=== PATIENT | male | born 1950 | race African-American/Black ===

== ENCOUNTER 2022-12-06 19:06 | Emergency (ER) | payer OTHER ==
--- NOTE | 2022-12-06 20:00 | RAD REPORT ---
EXAM DESCRIPTION: CT - [id number] - 12/06/2022 7:52 pm CLINICAL HISTORY: Trauma, head and neck injury. CONFUSED COMPARISON: <Comparisons> TECHNIQUE: Axial 5 mm thick images of the head were obtained. Axial 2 mm thick images of the cervical spine were obtained with sagittal and coronal reconstruction images generated and reviewed. All CT scans are performed using dose optimization technique as appropriate and may include automated exposure control or mA/KV adjustment according to patient size. FINDINGS: CT HEAD WITHOUT CONTRAST: No acute hemorrhage, hydrocephalus or extra-axial collection is identified.Gliosis in both occipital lobes and right cerebellar hemisphere likely from prior CVA. The paranasal sinuses and mastoids are clear.The calvarium is intact. CT CERVICAL SPINE WITHOUT CONTRAST: No fracture or subluxation.Sclerosis and multilevel degenerative changes are present with large anter ior bridging osteophyte.No prevertebral soft tissues swelling is identified. IMPRESSION: No acute intracranial or cervical spine findings.
[2022-12-06 20:01] LABS: Specific Gravity 1.007 (1.005-1.030); Urine Bilirubin NEGATIVE (Negative); Urine Blood Negative (Negative); Urine Clarity Clear (Clear); Urine Color Colorless (Yellow); Urine Glucose NEGATIVE (Negative); Urine Protein NEGATIVE (Negative); Urine Urobilinogen Normal (Normal)
[2022-12-06 20:03] LABS: Absolute Lymphocytes (CBC) 1.3 K/uL (0.7-4.9); Hematocrit 37.8 % (39.6-49.0); MCV 100.1 fL (80-100); MPV 8.1 fL (7.6-11.3); RBC Red Blood Cell Count 3.77 M/uL (4.33-5.43)
[2022-12-06] MEDS ORDERED: ACETAMINOPHEN 500 MG TAB ONE (20:19)
[2022-12-06 20:22] LABS: Potassium 3.9 mEq/L (3.5-5.1); Troponin High Sensitivity 10.8 pg/mL (<58.9)
--- NOTE | 2022-12-06 20:24 | RAD REPORT ---
EXAM DESCRIPTION: RAD - Chest Single View - 12/06/2022 8:06 pm CLINICAL HISTORY: CHEST PAIN Chest pain. COMPARISON: <Comparisons> FINDINGS: Portable technique limits examination quality. The lungs are grossly clear. The heart is normal in size. No displaced fractures. IMPRESSION: No acute intrathoracic process suspected.
--- NOTE | 2022-12-06 20:40 | EDPHYS ---
Physician Documentation [facility] Name: Sergei Hill Age: 72 yrs Sex: Male : 1950 Arrival Date: 12/06/2022 Time: 19:06 Bed 5 Private MD: ED Physician Danny Winston HPI: 12/06 20:28 This 72 yrs old Black Male presents to ER via EMS with complaints of Fall Injury. bs3 20:28 72-year-old male history of CVA presents status post fall he notes that he still bs3 evidence her walking fell hitting his head he denies loss of consciousness he currently feels little bit nauseous and hungry he denies any prefall chest pain shortness of breath abdominal pain nausea vomiting or anything else bothering him. Historical: - Allergies: 19:13 No Known Allergies; kd3 - PMHx: 19:13 CVA; kd3 - Immunization history:: Adult Immunizations up to date. - Social history:: Smoking status: Patient/guardian denies using tobacco, but has a distant history of tobacco abuse. ROS: 20:28 Constitutional: Negative for fever, chills bs3 20:28 All other systems are negative. Exam: 20:28 Constitutional: This is a well developed, well nourished patient who is awake, alert, bs3 and in no acute distress. Head/Face: Normocephalic, atraumatic. Eyes: Pupils equal round and reactive to light, extra-ocular motions intact. Lids and lashes normal. ENT: mmm, no posterior phyarngeal erythema Neck: Trachea midline, no thyromegaly, no neck stiffness Chest/axilla: Normal chest wall appearance and motion. Nontender with no deformity. No lesions are appreciated. Cardiovascular: Regular rate and rhythm with a normal S1 and S2. symmetric pulses in upper extremities Respiratory: Lungs have equal breath sounds bilaterally, clear to auscultation, no respiratory distress Skin: Warm, dry with normal turgor. Normal color with no rashes, no lesions, and no evidence of cellulitis. MS/ Extremity: Pulses equal, no cyanosis. Neurovascular intact. Full, normal range of motion. Neuro: Awake and alert, GCS 15, oriented to person, place, time, and situation. Cranial nerves II-XII grossly intact. Motor strength 5/5 in all extremities. Sensory grossly intact. 20:28 Normal sinus rhythm at [address] elevation or depression QTc 434 is interpreted by myself Vital Signs: 19:09 BP 163 / 99; Pulse 59; Resp 19; Temp 98.7; Pulse Ox 99% on R/A; Weight 58.97 kg; Height kd3 5 ft. 8 in. ; 20:10 BP 142 / 80; Pulse 50; Resp 12; Pulse Ox 99% ; vc1 21:11 BP 141 / 88; Pulse 51; Resp 16; Pulse Ox 96% on R/A; ll3 19:09 Body Mass Index 19.77 (58.97 kg, 172.72 cm) kd3 MDM: 19:15 Patient medically screened. bs3 20:28 Differential diagnosis: abrasion, closed head injury, contusion. Data reviewed: vital bs3 signs, nurses notes. ED course: Likely dizziness in the setting of standing up quickly and ambulating will evaluate for etiology of syncope his ECG was not consistent with a cardiac etiology he has no focal deficits here we will reassess his labs are notable for elevated proBNP however his chest x-ray is normal he does not appear to be in acute heart failure his CT was nondiagnostic for any intracranial hemorrhage will discharge home to care home. 20:38 ED course: Patient ambulating with steady gait here requesting to go home his work-up bs3 was otherwise nondiagnostic diagnostic his proBNP was elevated but asymptomatic, xr neg for pulm edema, will dc home. 12/06 19:22 Order name: Basic Metabolic Panel; Complete Time: 20:28 bs3 12/06 19:22 Order name: CBC with Diff; Complete Time: 20:28 bs3 12/06 19:22 Order name: NT PRO-BNP; Complete Time: 20:28 bs3 12/06 19:22 Order name: Troponin HS; Complete Time: 20:28 bs3 12/06 19:39 Order name: Urinalysis w/ reflexes; Complete Time: 20:28 bs3 12/06 19:22 Order name: XRAY Chest (1 view); Complete Time: 20:28 bs3 12/06 19:22 Order name: CT Head C Spine; Complete Time: 20:28 bs3 12/06 19:22 Order name: EKG; Complete Time: 19:23 bs3 12/06 19:22 Order name: Cardiac monitoring; Complete Time: 19:34 bs3 12/06 19:22 Order name: EKG - Nurse/Tech; Complete Time: 19:34 bs3 12/06 19:22 Order name: IV Saline Lock; Complete Time: 19:46 bs3 12/06 19:22 Order name: Labs collected and sent; Complete Time: 19:46 bs3 12/06 19:22 Order name: O2 Per Protocol; Complete Time: 19:34 bs3 12/06 19:22 Order name: O2 Sat Monitoring; Complete Time: 19:34 bs3 Administered Medications: 20:14 Drug: Acetaminophen PO 1000 mg Route: PO; ll3 21:09 Follow up: Response: No adverse reaction; Marked relief of symptoms ll3 Disposition Summary: 12/06/22 20:39 Discharge Ordered Location: Home bs3 Problem: new bs3 Symptoms: have improved bs3 Condition: Stable bs3 Diagnosis - Unspecified injury of head, initial encounter bs3 Followup: bs3 - With: Private Physician - When: 48 Hours - Reason: Re-evaluation by your physician Discharge Instructions: - Discharge Summary Sheet bs3 - Head Injury, Adult bs3 - Dizziness, [id number] bs3 Forms: - Medication Reconciliation Form bs3 - Thank You Letter bs3 - Antibiotic Education bs3 - Prescription Opioid Use bs3 Signatures: Dispatcher [employer] Luciano Blackmon, RN RN ll3 Angie Tucker RN RN kd3 Danny Winston MD MD bs3 Corrections: (The following items were deleted from the chart) 19:34 19:23 Head Brain Wo Cont+CT.RAD.BRZ ordered. EDMS EDMS
--- NOTE | 2022-12-06 20:40 | ER ---
Nurse's Notes [facility] Name: Sergei Hill Age: 72 yrs Sex: Male : 1950 Arrival Date: 12/06/2022 Time: 19:06 Bed 5 Private MD: Diagnosis: Unspecified injury of head, initial encounter Presentation: 12/06 19:09 Chief complaint: EMS states: Pt stumbled over his feet around noon today and hit his kd3 head on a dresser over his right eye. Pt is complaining of a headache over the right eye. No other complaints of pain. 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 Coronavirus screen: Vaccine status: Patient reports receiving the 2nd dose of the covid vaccine. Ebola Screen: No symptoms or risks identified at this time. Initial Sepsis Screen: Does the patient meet any 2 criteria? No. Patient's initial sepsis screen is negative. Does the patient have a suspected source of infection? No. Patient's initial sepsis screen is negative. Risk Assessment: Do you want to hurt yourself or someone else? Patient reports no desire to harm self or others. Onset of symptoms was December 06, 2022. 19:09 Method Of Arrival: EMS: [facility] kd3 19:09 Acuity: YANICK 3 kd3 Triage Assessment: 19:13 General: Appears in no apparent distress. Behavior is calm, cooperative. Pain: kd3 Complains of pain in forehead. Neuro: Level of Consciousness is awake, alert, obeys commands, Oriented to person, place, time, situation. Cardiovascular: Patient's skin is warm and dry. Respiratory: Airway is patent Trachea midline Respiratory effort is even, unlabored, Respiratory pattern is regular, symmetrical. Historical: - Allergies: 19:13 No Known Allergies; kd3 - PMHx: 19:13 CVA; kd3 - Immunization history:: Adult Immunizations up to date. - Social history:: Smoking status: Patient/guardian denies using tobacco, but has a distant history of tobacco abuse. Screenin:08 [facility] ED Fall Risk Assessment (Adult) History of falling in the last 3 months, vc1 including since admission Yes- physiologic fall (2 pts) Confusion or Disorientation No (0 pts) Intoxicated or Sedated No (0 pts) Impaired Gait Yes (1 pt) Mobility Assist Device Used No (0 pt) Altered Elimination Yes (1 pt) Score/Fall Risk Level 0 - 2 = Low Risk Oriented to surroundings, Maintained a safe environment, Educated pt \T\ family on fall prevention, incl call for assistance when getting out of bed. Abuse screen: Denies threats or abuse. Nutritional screening: No deficits noted. Tuberculosis screening: No symptoms or risk factors identified. Assessment: 19:30 General: Appears uncomfortable, Behavior is calm, cooperative. Pain: Complains of pain ll3 in face Pain does not radiate. Pain currently is 7 out of 10 on a pain scale. Neuro: Level of Consciousness is awake, alert, obeys commands, Oriented to person, place, time, situation, Reports headache. Derm: Skin is pink, warm \T\ dry. 21:11 Reassessment: Patient and/or family updated on plan of care and expected duration. Pain ll3 level reassessed. Patient is alert, oriented x 3, equal unlabored respirations, skin warm/dry/pink. states H/A is gone, denies pain at this time. 21:19 Reassessment: waiting on transportation back to [facility]. vc1 Vital Signs: 19:09 BP 163 / 99; Pulse 59; Resp 19; Temp 98.7; Pulse Ox 99% on R/A; Weight 58.97 kg; Height kd3 5 ft. 8 in. ; 20:10 BP 142 / 80; Pulse 50; Resp 12; Pulse Ox 99% ; vc1 21:11 BP 141 / 88; Pulse 51; Resp 16; Pulse Ox 96% on R/A; ll3 19:09 Body Mass Index 19.77 (58.97 kg, 172.72 cm) kd3 ED Course: 19:09 Patient arrived in ED. kd3 19:13 Triage completed. kd3 19:13 Arm band placed on. kd3 19:15 Danny Winston MD is Attending Physician. bs3 19:15 Patient has correct armband on for positive identification. Placed in gown. Bed in low vc1 position. Call light in reach. Side rails up X2. Client placed on continuous cardiac and pulse oximetry monitoring. NIBP monitoring applied. 19:53 CT Head C Spine In Process Unspecified. EDMS 20:07 XRAY Chest (1 view) In Process Unspecified. EDMS 20:07 Tessa Huff, RN is Primary Nurse. vc1 21:12 No provider procedures requiring assistance completed. ll3 21:29 IV discontinued, intact, bleeding controlled, No redness/swelling at site. Pressure ll3 dressing applied. Administered Medications: 20:14 Drug: Acetaminophen PO 1000 mg Route: PO; ll3 21:09 Follow up: Response: No adverse reaction; Marked relief of symptoms ll3 Medication: 20:09 VIS not applicable for this client. vc1 Outcome: 20:39 Discharge ordered by . bs3 21:29 Discharged to home ambulatory, via ambulance. ll3 21:29 Condition: stable 21:29 Discharge instructions given to patient, residential, Instructed on discharge instructions, follow up and referral plans. Demonstrated understanding of instructions, follow-up care. 21:29 Patient left the ED. ll3 Signatures: Dispatcher [employer] EDMS Luciano Ko RN RN ll3 Angie Tucker RN RN 3 Tessa Huff, KEILA RN vc1 Danny Winston MD MD bs3
[2022-12-06 21:59] VITALS: TEMP 98.7
[2022-12-06 22:02] VITALS: BP 141/88; O2SAT 96
== END 2022-12-06 21:29 | disposition home or self-care (01) ==
LOC: ER 19:06
DX: S09.90XA Unspecified injury of head, initial encounter (principal); W18.30XA Fall on same level, unspecified, initial encounter; Z86.73 Personal history of transient ischemic attack (TIA), and cerebral infarction without residual deficits
CPT/HCPCS: 36415; 70450; 71045; 72125; 80048; 81003; 83880; 84484; 85025; 93005